=== PATIENT | female | born 2000 | race Hispanic/Latino ===

== ENCOUNTER 2023-07-18 10:06 | Emergency (ER) | payer BC ==
[~2023-07-18] VITALS: Ht 160 cm; Wt 120.2 kg
[2023-07-18 10:21] VITALS: BP 121/65; PULSE 88; RESP 16; O2SAT 97
[2023-07-18] MEDS: ACETAMINOPHEN 500 MG TABLET PO ONE (11:05)
== END 2023-07-18 13:20 | disposition home or self-care (01) ==
LOC: EDH 10:06
DX: O26.891 Other specified pregnancy related conditions, first trimester (principal); R10.30 Lower abdominal pain, unspecified; R10.2 Pelvic and perineal pain; Z3A.01 Less than 8 weeks gestation of pregnancy
CPT/HCPCS: 76801; 81025